=== PATIENT | male | born 1960 | race Two or more races ===

== ENCOUNTER 2017-03-22 11:58 | Day surgery (SDC) | payer OTHER ==
[2017-03-22 12:59] LABS: ADD MAN DIFF? NO
[2017-03-22 13:00] LABS: WHITE BLOOD COUNT 8.4 10^3/ul (4.8-10.8)
[2017-03-22 13:00] LABS: BASOPHILS % 0.4 % (0.0-2.0); EOSINOPHILS # 0.2 10^3/ul (0.0-0.5); EOSINOPHILS % 1.8 % (0.0-7.0); HEMATOCRIT 40.9 % (42.0-52.0); HEMOGLOBIN 13.7 g/dl (14.0-18.0); LYMPHOCYTES # 2.2 10^3/ul (0.8-2.9); LYMPHOCYTES % 26.4 % (15.0-51.0); MEAN CORPUSCULAR HEMOGLOBIN 28.8 pg (29.0-33.0); MEAN CORPUSCULAR HGB CONC 33.5 g/dl (32.0-37.0); MEAN CORPUSCULAR VOLUME 85.9 fl (82.0-101.0); MEAN PLATELET VOLUME 9.4 fl (7.4-10.4); MONOCYTE # 0.6 10^3/ul (0.3-0.9); MONOCYTES % 7.1 % (0.0-11.0); NEUTROPHIL # 5.4 10^3/ul (1.6-7.5); NEUTROPHILS % 64.1 % (39.0-77.0); PLATELET COUNT 254 10^3/UL (140-415); RED BLOOD COUNT 4.76 10^6/ul (4.70-6.10); RED CELL DISTRIBUTION WIDTH 12.6 % (11.5-14.5)
[2017-03-22] MEDS ORDERED: MIDAZOLAM 1 MG/ML 2 ML INJ (14:12)
[2017-03-22] MEDS ORDERED: CEFAZOLIN 1 GM INJ (14:12)
[2017-03-22] MEDS ORDERED: PROPOFOL 20 ML (14:12)
[2017-03-22] MEDS ORDERED: ROPIVACAINE 0.5 % 30 ML VIAL (14:12)
[2017-03-22] MEDS: LIDOCAINE 1%/EPI 30 ML INJ (14:54)
[2017-03-22] MEDS ORDERED: KETOROLAC 30 MG INJ (16:08)
[2017-03-22] MEDS ORDERED: ONDANSETRON 4 MG INJ (16:08)
[2017-03-22] MEDS ORDERED: METOCLOPRAMIDE 10 MG INJ (16:08)
[2017-03-22] MEDS ORDERED: DEXAMETHASONE 4 MG/ML 1 ML INJ (16:08)
[2017-03-22] MEDS ORDERED: ACETAMINOPHEN 1000MG/100ML IV 100 ML (16:08)
[2017-03-22] MEDS ORDERED: HYDROmorphONE (0.2 MG/ML) 10ML SYG IV (16:53)
[2017-03-22] MEDS: HYDROmorphONE (0.2 MG/ML) 10ML SYG IV (17:05)
[2017-03-22] MEDS ORDERED: METOCLOPRAMIDE 10 MG INJ IV (17:30)
[2017-03-22] MEDS ORDERED: MEPERIDINE 25 MG INJ IV (17:30)
[2017-03-22] MEDS ORDERED: LABETALOL HCL 20MG INJ IV (17:30)
[2017-03-22] MEDS ORDERED: KETOROLAC 30 MG INJ IV (17:30)
[2017-03-22] MEDS ORDERED: EPHEDrine SULFATE 50 MG/5 ML SYG IV (17:30)
[2017-03-22] MEDS ORDERED: ONDANSETRON 4 MG INJ IV (17:30)
[2017-03-22] MEDS ORDERED: OXYCODONE/ACETAMINOPHEN (5/325) TAB PO ×2 (17:30)
== END 2017-03-22 18:20 | disposition home or self-care (01) ==
LOC: SDS 11:58
DX: S52.572A Other intraarticular fracture of lower end of left radius, initial encounter for closed fracture (principal); E78.5 Hyperlipidemia, unspecified; W00.0XXA Fall on same level due to ice and snow, initial encounter; Y93.89 Activity, other specified; Y92.89 Other specified places as the place of occurrence of the external cause; Y99.8 Other external cause status
CPT/HCPCS: 25609; 73100; 73110-LT; 85025; 93005